=== PATIENT | male | born 1990 | race Caucasian/White ===

== ENCOUNTER 2019-03-19 14:29 | Inpatient (IN) | payer MEDICAID, OTHER ==
[~2019-03-19] VITALS: Ht 172.7 cm; Wt 96.6 kg
[2019-03-19] MEDS ORDERED: PIPER-TAZO 3.375 GM IV (PMX) 100 ML IVPB STA (21:09)
[2019-03-19] MEDS ORDERED: VANCOMYCIN 1 GM (PMX) 250 ML IVPB STA (21:09)
[2019-03-19] MEDS ORDERED: ACETAMINOPHEN 325 MG TAB PO STA (21:09)
[2019-03-19] MEDS ORDERED: ESTR1TAB23 PO (21:22)
[2019-03-19] MEDS ORDERED: FLUO20CA38 PO (21:23)
[2019-03-19] MEDS ORDERED: SPIR25TA PO (21:23)
[2019-03-19] MEDS ORDERED: ARIP5TAB14 PO (21:24)
--- NOTE | 2019-03-19 22:14 | ERD ---
ER Documentation Chief Complaint Chief Complaint wound, possible mrsa on skin HPI This is a 28-year-old transgender male who presents for evaluation of pain and swelling to his legs bilaterally. Patient has a history of polysubstance abuse, and has history of skin popping, as well as IV drug use. He denies fever, he denies chest pain or shortness of breath. His symptoms have been ongoing for the last 3 days, there are no alleviating or aggravating factors. He has not been on antibiotics recently. He denies any history of withdrawal. ROS All systems reviewed and are negative except as per history of present illness. Medications Home Meds Reported Medications Aripiprazole* (Abilify*) Unknown Strength Tab, 1 TAB PO DAILY, #30 TAB 03/19/19 Fluoxetine Hcl* (Prozac*) Unknown Strength Capsule, 1 TAB PO DAILY, CAP 03/19/19 Spironolactone* (Aldactone*) Unknown Strength Tablet, 1 TAB PO DAILY, #30 TAB 03/19/19 Estradiol* (Estrace*) Unknown Strength Tablet, 1 TAB PO DAILY, TAB 03/19/19 Allergies Allergies: Coded Allergies: No Known Allergy (Unverified , 03/19/19) PMhx/Soc Medical and Surgical Hx: pt denies Surgical Hx History of Surgery: No Anesthesia Reaction: No Hx Neurological Disorder: No Hx Respiratory Disorders: No Hx Cardiac Disorders: No Hx Psychiatric Problems: Yes (Homsexuality) Hx Miscellaneous Medical Probl: Yes Hx Alcohol Use: Yes (Social) Hx Substance Use: Yes (Meth,Heroin IV/snort) Hx Tobacco Use: Yes (2-3 sticks/day) Smoking Status: Current every day smoker Physical Exam Vitals Vital Signs Date Temp Pulse Resp B/P (MAP) Pulse Ox O2 O2 Flow FiO2 Time Delivery Rate 03/19/19 98.1 67 18 148/58 99 14:37 (88) Physical Exam Const: Well-developed, well-nourished, appears stated age, Head: Atraumatic Eyes: Normal Conjunctiva ENT: Normal External Ears, Nose and Mouth. Neck: Full range of motion. No meningismus. Resp: Clear to auscultation bilaterally Cardio: Regular rate and rhythm, no murmurs Abd: Soft, non tender, non distended. Normal bowel sounds Skin: There are multiple blisters and signs of skin popping noted over the face, and upper and lower extremities bilaterally. No significant there is warmth erythema and induration to the lower extreme is bilaterally, there is purulent drainage coming from a superficial ulcer over the calf there are no fluctuant masses, or any palpable abscesses. Pulses are intact distally, sensation is intact to light touch Back: No midline or flank tenderness Ext: No cyanosis, or edema Neur: Awake and alert Psych: Normal Mood and Affect Result Diagram: 03/19/19213703/19/192137 Results 24 hrs Laboratory Tests Test 03/19/19 21:38 03/19/19 22:15 White Blood Count 15.8 10^3/ul Red Blood Count 4.49 10^6/ul Hemoglobin 11.3 g/dl Hematocrit 35.6 % Mean Corpuscular Volume 79.3 fl Mean Corpuscular Hemoglobin 25.2 pg Mean Corpuscular Hemoglobin Concent 31.7 g/dl Red Cell Distribution Width 15.5 % Platelet Count 465 10^3/UL Mean Platelet Volume 9.6 fl Immature Granulocytes % 1.100 % Neutrophils % 65.7 % Lymphocytes % 17.5 % Monocytes % 12.3 % Eosinophils % 3.0 % Basophils % 0.4 % Nucleated Red Blood Cells % 0.0 /100WBC Immature Granulocytes # 0.170 10^3/ul Neutrophils # 10.3 10^3/ul Lymphocytes # 2.8 10^3/ul Monocytes # 1.9 10^3/ul Eosinophils # 0.5 10^3/ul Basophils # 0.1 10^3/ul Nucleated Red Blood Cells # 0.0 10^3/ul Prothrombin Time 14.6 Sec Prothrombin Time Ratio 1.1 INR International Normalized Ratio 1.13 Activated Partial Thromboplast Time 26.0 Sec Sodium Level 135 mmol/L Potassium Level 4.2 mmol/L Chloride Level 95 mmol/L Carbon Dioxide Level 29 mmol/L Anion Gap 11 Blood Urea Nitrogen 7 mg/dl Creatinine 0.55 mg/dl Est Glomerular Filtrat Rate mL/min > 60 mL/min Glucose Level 96 mg/dl Calcium Level 8.7 mg/dl Total Bilirubin 0.6 mg/dl Direct Bilirubin 0.00 mg/dl Indirect Bilirubin 0.6 mg/dl Aspartate Amino Transf (AST/SGOT) 53 IU/L Alanine Aminotransferase (ALT/SGPT) 28 IU/L Alkaline Phosphatase 65 IU/L Troponin I < 0.012 ng/ml Total Protein 7.7 g/dl Albumin 3.7 g/dl Globulin 4.00 g/dl Albumin/Globulin Ratio 0.92 POC Venous Lactate 1.1 mmol/L Current Medications Medications Dose Sig/Audrey Start Time Status Last (Trade) Ordered Route PRN Stop Time Admin Dose Reason Admin 650 mg ONCE STAT 03/19/19 DC 03/19/19 Acetaminophen PO 21:09 03/19/19 21:26 (Tylenol 21:13 Tab) Vancomycin 250 ml @ ONCE STAT 03/19/19 03/19/19 HCl 125 mls/hr IVPB 21:09 03/19/19 21:37 23:08 Piperacillin 100 ml @ ONCE STAT 03/19/19 DC 03/19/19 Sod/ 200 mls/hr IVPB 21:09 03/19/19 21:36 Tazobactam 21:38 Sod Sodium 2,340 ml BOLUS OVER 2 03/19/19 DC 03/19/19 Chloride HOURS STAT 22:15 03/19/19 22:26 (NS) IV* 22:17 Procedures/MDM This is a 28-year-old male who presents for evaluation of bilateral lower extremity swelling and edema. His symptoms are most likely related to cellulitis, with his major risk factor being history of skin popping and drug use. Patient had a notable leukocytosis of 15, otherwise he is afebrile, he had no tachycardia, and his blood pressure was in the 140s systolic. He did not have any evidence of severe sepsis, or septic shock. He was given 30 cc/kg's of IV fluids, as well as vancomycin and Zosyn to cover for soft tissue infection. Patient will be admitted to [facility]. Lower suspicion for DVTs, however an ultrasound was ordered, the patient deferred exam at this time. Accepting Care Team: Current data and ongoing care discussed. Primary: Amde Consulting: None Outstanding Data: none EKG: Rate/Rhythm: Normal Sinus Rhythm QRS, ST, T-waves: No changes consistent w/ acute ischemia Impression: No evidence of ischemia or arrhythmia Departure Diagnosis: Primary Impression: Cellulitis Site of cellulitis: unspecified site Qualified Codes: L03.90 - Cellulitis, unspecified Condition: Stable SUHA MONTES DE OCA MD March 19, 2019 22:14
[2019-03-19] MEDS ORDERED: SODIUM CHLORIDE 0.9% 1L BAG IV* STA (22:15)
[2019-03-19 23:43] VITALS: Ht 172.7 cm; Wt 96.6 kg
[2019-03-20] VITALS: BP 105/59; PULSE 100; RESP 18
[2019-03-20] MEDS ORDERED: ONDANSETRON 4 MG INJ IV PRN (01:00)
[2019-03-20] MEDS ORDERED: KETOROLAC 30 MG INJ IV PRN (01:00)
[2019-03-20] MEDS ORDERED: ACETAMINOPHEN 325 MG TAB PO PRN (01:00)
[2019-03-20] MEDS ORDERED: NACL 0.9% 3 ML SYG IV SCH (01:00)
[2019-03-20 02:15] VITALS: BP 112/62; PULSE 96; RESP 20
[2019-03-20] MEDS: VANCOMYCIN HCL 1.25 GM in SOD CHLORIDE 0.9% 250 ML IVPB SCH ×3 (04:46→21:54)
--- NOTE | 2019-03-20 06:43 | HP ---
Date/Time of Note Date/Time of Note DATE: 03/20/19 TIME: 06:39 Assessment/Plan VTE Prophylaxis Risk score (from Ns)>0 risk: 5 SCD applied (from Nsg): Yes Pharmacological prophylaxis: heparin Lines/Catheters IV Catheter Type (from Nrs): Saline Lock Assessment/Plan Hospital Course This is a 28-year-old male with a history of bipolar, ADHD, polysubstance abuse including methamphetamine, cocaine, heroine presents with a bilateral lower extremity swelling as well as several upper extremity and facial wounds, secondary to skin popping. 1. Bilateral lower extremity swelling, bilateral upper extremity wounds: Secondary to skin popping -IV antibiotic -Wound care consult -ID consult 2. Leukocytosis: Secondary to above Result Diagram: 03/20/19 0559 03/19/19 2138 Results 24hrs Laboratory Tests Test 03/19/19 21:38 03/19/19 22:15 03/19/19 23:00 03/20/19 01:09 White Blood Count 15.8 H Red Blood Count 4.49 L Hemoglobin 11.3 L Hematocrit 35.6 L Mean Corpuscular Volume 79.3 L Mean Corpuscular 25.2 L Hemoglobin Mean Corpuscular 31.7 L Hemoglobin Concent Red Cell Distribution 15.5 H Width Platelet Count 465 H Mean Platelet Volume 9.6 Immature Granulocytes % 1.100 H Neutrophils % 65.7 Lymphocytes % 17.5 Monocytes % 12.3 H Eosinophils % 3.0 Basophils % 0.4 Nucleated Red Blood 0.0 Cells % Immature Granulocytes # 0.170 H Neutrophils # 10.3 H Lymphocytes # 2.8 Monocytes # 1.9 H Eosinophils # 0.5 Basophils # 0.1 Nucleated Red Blood 0.0 Cells # Prothrombin Time 14.6 Prothrombin Time Ratio 1.1 INR International 1.13 Normalized Ratio Activated 26.0 Partial Thromboplast Time Sodium Level 135 Potassium Level 4.2 Chloride Level 95 L Carbon Dioxide Level 29 Anion Gap 11 Blood Urea Nitrogen 7 Creatinine 0.55 L Est Glomerular Filtrat > 60 Rate mL/min Glucose Level 96 Calcium Level 8.7 Total Bilirubin 0.6 Direct Bilirubin 0.00 Indirect Bilirubin 0.6 Aspartate Amino 53 H Transf (AST/SGOT) Alanine 28 Aminotransferase (ALT/SG PT) Alkaline Phosphatase 65 Troponin I < 0.012 Total Protein 7.7 Albumin 3.7 Globulin 4.00 H Albumin/Globulin Ratio 0.92 POC Venous Lactate 1.1 Urine Color YELLOW Urine Clarity CLEAR Urine pH 6.0 Urine Specific Albert 1.011 Urine Ketones NEGATIVE Urine Nitrite NEGATIVE Urine Bilirubin NEGATIVE Urine Urobilinogen 2+ H Urine Leukocyte Esterase NEGATIVE Urine Hemoglobin NEGATIVE Urine Glucose NEGATIVE Urine Total Protein NEGATIVE Urine Opiates Screen Positive Urine Barbiturates Negative Urine Amphetamines POSITIVE Screen Urine Benzodiazepines Negative Screen Urine Cocaine Screen Negative Urine Cannabinoids Negative Lactic Acid Level 0.8 Test 03/20/19 05:59 White Blood Count 14.0 H Red Blood Count 4.15 L Hemoglobin 10.4 L Hematocrit 32.7 L Mean Corpuscular Volume 78.8 L Mean Corpuscular 25.1 L Hemoglobin Mean Corpuscular 31.8 L Hemoglobin Concent Red Cell Distribution 15.7 H Width Platelet Count 440 H Mean Platelet Volume 9.4 Immature Granulocytes % 0.900 H Neutrophils % 70.3 Lymphocytes % 14.5 L Monocytes % 11.5 H Eosinophils % 2.5 Basophils % 0.3 Nucleated Red Blood 0.0 Cells % Immature Granulocytes # 0.130 H Neutrophils # 9.8 H Lymphocytes # 2.0 Monocytes # 1.6 H Eosinophils # 0.4 Basophils # 0.0 Nucleated Red Blood 0.0 Cells # HPI/ROS Admit Date/Time Admit Date/Time March 19, 2019 at 21:51 Hx of Present Illness This is a 28-year-old male with a history of bipolar, ADHD, polysubstance abuse including methamphetamine, cocaine and heroine pain the skin popping. Patient presented to the ER complaining of bilateral lower extremity swelling. Patient has been skin popping. Also has several wounds in the bilateral upper extremity and also on the face as well. Patient not answering questions saying that wants to sleep. 1 presents the ER, vitals were stable. WBC 16,000, hemoglobin 11, otherwise basic labs was in acceptable range. PMH/Family/Social Past Medical History Past Surgical Hx: other (see hpi) Family History Significant Family History: no pertinent family hx Social History Alcohol Use: none Smoking Status: Never smoker Drug Use: none Exam Exam Constitutional: other (No acute distress) Head: normocephalic, atraumatic Eyes: EOMI, PERRL Respiratory: other (no wheezing or Rhonchi) Cardiovascular: normal pulse Gastrointestinal: soft, non-tender Extremities: normal pulses Medications Current Medications IV Flush (NS 3 ml) 3 ml PER PROTOCOL IV ; Start 03/20/19 at 01:00 Ondansetron HCl (Zofran Inj) 4 mg Q6H PRN IV NAUSEA/VOMITING; Start 03/20/19 at 01:00 Acetaminophen (Tylenol Tab) 650 mg Q6H PRN PO .PAIN 1-3 OR TEMP; Start 03/20/19 at 01:00 Enoxaparin Sodium (Lovenox) 40 mg DAILY SC ; Start 03/20/19 at 09:00 Ketorolac Tromethamine (Toradol) 30 mg Q6H PRN IV PAIN LEVEL 1-3 Last administered on 03/20/19at 04:46; Admin Dose 30 MG; Start 03/20/19 at 01:00; Stop 03/23/19 at 00:59 Vancomycin HCl (Vanco Iv Per Pharmacy) VANCOMYCIN PER PHARMACY PER PROTOCOL XX ; Start 03/20/19 at 09:00 Cefepime HCl 50 ml @ 100 mls/hr Q12 IVPB ; Start 03/20/19 at 09:00 Vancomycin HCl 1.25 gm/Sodium Chloride 250 ml @ 83.333 mls/ hr Q8H IVPB Last administered on 03/20/19at 04:46; Admin Dose 83.333 MLS/HR; Start 03/20/19 at 06:00 Coded Allergies: No Known Allergy (Unverified , 03/19/19) Social History Smoking Status: Current every day smoker Exam/Review of Systems Vital Signs Vitals Vital Signs Date Temp Pulse Resp B/P (MAP) Pulse Ox O2 O2 Flow FiO2 Time Delivery Rate 03/20/19 98.6 96 20 112/62 99 02:15 (79) 03/20/19 Room Air 00:00 Intake and Output 03/19/19 03/19/19 03/20/19 1515:00 23:00 07:00 IntakeIntake Total 100 ml 3830 ml OutputOutput Total 625 ml BalanceBalance 100 ml 3205 ml LYNN DUNCAN MD March 20, 2019 06:43
[2019-03-20 08:00] VITALS: BP 109/63; PULSE 96; RESP 18
[2019-03-20] MEDS: ENOXAPARIN 40 MG/0.4 ML SYG SC SCH (09:00)
[2019-03-20] MEDS ORDERED: VANCOMYCIN IV PER PHARMACY XX SCH (09:00)
[2019-03-20] MEDS: CEFEPIME 1GM/50 ML (PMX) 50 ML IVPB SCH ×2 (10:13→20:38)
[2019-03-20] MEDS: METHADONE (1 MG/ML 5 ML PO UD SYG) PO SCH (12:30)
[2019-03-20 14:49] VITALS: BP 105/59; PULSE 92; RESP 18
--- NOTE | 2019-03-20 15:41 | PN ---
Date/Time of Note Date/Time of Note DATE: 03/20/19 TIME: 15:33 Assessment/Plan VTE Prophylaxis Risk score (from Ns)>0 risk: 3 SCD applied (from [facility]): No SCD contraindicated: other Pharmacological prophylaxis: LMWH Lines/Catheters IV Catheter Type (from [facility]): Saline Lock Assessment/Plan Assessment/Plan 1. Bilateral lower extremity cellulitis and bilateral upper extremity wounds from skin popping, continue antibiotics with cefepime and vancomycin, wound care 2. polysubstance abuse, advise to quit 3. DVT prophylaxis: lovenox Result Diagram: 03/20/1959 03/20/1959 Results 24hrs Laboratory Tests Test 03/19/19 21:38 03/19/19 22:15 03/19/19 23:00 03/20/19 01:09 White Blood Count 15.8 H Red Blood Count 4.49 L Hemoglobin 11.3 L Hematocrit 35.6 L Mean Corpuscular Volume 79.3 L Mean Corpuscular 25.2 L Hemoglobin Mean Corpuscular 31.7 L Hemoglobin Concent Red Cell Distribution 15.5 H Width Platelet Count 465 H Mean Platelet Volume 9.6 Immature Granulocytes % 1.100 H Neutrophils % 65.7 Lymphocytes % 17.5 Monocytes % 12.3 H Eosinophils % 3.0 Basophils % 0.4 Nucleated Red Blood 0.0 Cells % Immature Granulocytes # 0.170 H Neutrophils # 10.3 H Lymphocytes # 2.8 Monocytes # 1.9 H Eosinophils # 0.5 Basophils # 0.1 Nucleated Red Blood 0.0 Cells # Prothrombin Time 14.6 Prothrombin Time Ratio 1.1 INR International 1.13 Normalized Ratio Activated 26.0 Partial Thromboplast Time Sodium Level 135 Potassium Level 4.2 Chloride Level 95 L Carbon Dioxide Level 29 Anion Gap 11 Blood Urea Nitrogen 7 Creatinine 0.55 L Est Glomerular Filtrat > 60 Rate mL/min Glucose Level 96 Calcium Level 8.7 Total Bilirubin 0.6 Direct Bilirubin 0.00 Indirect Bilirubin 0.6 Aspartate Amino 53 H Transf (AST/SGOT) Alanine 28 Aminotransferase (ALT/SG PT) Alkaline Phosphatase 65 Troponin I < 0.012 Total Protein 7.7 Albumin 3.7 Globulin 4.00 H Albumin/Globulin Ratio 0.92 POC Venous Lactate 1.1 Urine Color YELLOW Urine Clarity CLEAR Urine pH 6.0 Urine Specific [place] 1.011 Urine Ketones NEGATIVE Urine Nitrite NEGATIVE Urine Bilirubin NEGATIVE Urine Urobilinogen 2+ H Urine Leukocyte Esterase NEGATIVE Urine Hemoglobin NEGATIVE Urine Glucose NEGATIVE Urine Total Protein NEGATIVE Urine Opiates Screen Positive Urine Barbiturates Negative Urine Amphetamines POSITIVE Screen Urine Benzodiazepines Negative Screen Urine Cocaine Screen Negative Urine Cannabinoids Negative Lactic Acid Level 0.8 Test 03/20/19 05:59 White Blood Count 14.0 H Red Blood Count 4.15 L Hemoglobin 10.4 L Hematocrit 32.7 L Mean Corpuscular Volume 78.8 L Mean Corpuscular 25.1 L Hemoglobin Mean Corpuscular 31.8 L Hemoglobin Concent Red Cell Distribution 15.7 H Width Platelet Count 440 H Mean Platelet Volume 9.4 Immature Granulocytes % 0.900 H Neutrophils % 70.3 Lymphocytes % 14.5 L Monocytes % 11.5 H Eosinophils % 2.5 Basophils % 0.3 Nucleated Red Blood 0.0 Cells % Immature Granulocytes # 0.130 H Neutrophils # 9.8 H Lymphocytes # 2.0 Monocytes # 1.6 H Eosinophils # 0.4 Basophils # 0.0 Nucleated Red Blood 0.0 Cells # Sodium Level 137 Potassium Level 3.9 Chloride Level 103 Carbon Dioxide Level 27 Anion Gap 7 Blood Urea Nitrogen 5 L Creatinine 0.64 Est Glomerular Filtrat > 60 Rate mL/min Glucose Level 99 Calcium Level 7.7 L Total Bilirubin 0.6 Direct Bilirubin 0.00 Indirect Bilirubin 0.6 Aspartate Amino 37 Transf (AST/SGOT) Alanine 33 Aminotransferase (ALT/SG PT) Alkaline Phosphatase 58 Total Protein 6.6 # Albumin 2.9 L Globulin 3.70 H Albumin/Globulin Ratio 0.78 Subjective 24 Hr Interval Summary Free Text/Dictation pain on legs Exam/Review of Systems Exam Vitals Vital Signs Date Temp Pulse Resp B/P (MAP) Pulse Ox O2 O2 Flow FiO2 Time Delivery Rate 03/20/19 97.9 92 18 105/59 99 Room Air 14:49 (74) Intake and Output 03/19/19 03/19/19 03/20/19 1515:00 23:00 07:00 IntakeIntake Total 100 ml 4580 ml OutputOutput Total 1175 ml BalanceBalance 100 ml 3405 ml Constitutional: alert, oriented, well developed Head: normocephalic, atraumatic Eyes: nl conjunctiva, EOMI, nl lids, PERRL ENMT: nl external ears & nose, nl lips & teeth, nl nasal mucosa & septum Neck: supple, non-tender Respiratory: clear to auscultation, normal air movement Cardiovascular: regular rate and rhythm, nl pulses; No bruits, No diastolic murmur, No edema, No gallop, No irregular rhythm, No jugular venous distention (JVD), No murmurs/extra sounds, No rub, No systolic murmur, No S3, No S4, No other Gastrointestinal: soft, nl liver, spleen, non-tender Musculoskeletal: nl extremities to inspection Extremities: other (multiple skin lesions, no infection on arms, face. 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, nl mental status, nl speech, nl strength Results Results 24hrs Laboratory Tests Test 03/19/19 21:38 03/19/19 22:15 03/19/19 23:00 03/20/19 01:09 White Blood Count 15.8 H Red Blood Count 4.49 L Hemoglobin 11.3 L Hematocrit 35.6 L Mean Corpuscular Volume 79.3 L Mean Corpuscular 25.2 L Hemoglobin Mean Corpuscular 31.7 L Hemoglobin Concent Red Cell Distribution 15.5 H Width Platelet Count 465 H Mean Platelet Volume 9.6 Immature Granulocytes % 1.100 H Neutrophils % 65.7 Lymphocytes % 17.5 Monocytes % 12.3 H Eosinophils % 3.0 Basophils % 0.4 Nucleated Red Blood 0.0 Cells % Immature Granulocytes # 0.170 H Neutrophils # 10.3 H Lymphocytes # 2.8 Monocytes # 1.9 H Eosinophils # 0.5 Basophils # 0.1 Nucleated Red Blood 0.0 Cells # Prothrombin Time 14.6 Prothrombin Time Ratio 1.1 INR International 1.13 Normalized Ratio Activated 26.0 Partial Thromboplast Time Sodium Level 135 Potassium Level 4.2 Chloride Level 95 L Carbon Dioxide Level 29 Anion Gap 11 Blood Urea Nitrogen 7 Creatinine 0.55 L Est Glomerular Filtrat > 60 Rate mL/min Glucose Level 96 Calcium Level 8.7 Total Bilirubin 0.6 Direct Bilirubin 0.00 Indirect Bilirubin 0.6 Aspartate Amino 53 H Transf (AST/SGOT) Alanine 28 Aminotransferase (ALT/SG PT) Alkaline Phosphatase 65 Troponin I < 0.012 Total Protein 7.7 Albumin 3.7 Globulin 4.00 H Albumin/Globulin Ratio 0.92 POC Venous Lactate 1.1 Urine Color YELLOW Urine Clarity CLEAR Urine pH 6.0 Urine Specific [place] 1.011 Urine Ketones NEGATIVE Urine Nitrite NEGATIVE Urine Bilirubin NEGATIVE Urine Urobilinogen 2+ H Urine Leukocyte Esterase NEGATIVE Urine Hemoglobin NEGATIVE Urine Glucose NEGATIVE Urine Total Protein NEGATIVE Urine Opiates Screen Positive Urine Barbiturates Negative Urine Amphetamines POSITIVE Screen Urine Benzodiazepines Negative Screen Urine Cocaine Screen Negative Urine Cannabinoids Negative Lactic Acid Level 0.8 Test 03/20/19 05:59 White Blood Count 14.0 H Red Blood Count 4.15 L Hemoglobin 10.4 L Hematocrit 32.7 L Mean Corpuscular Volume 78.8 L Mean Corpuscular 25.1 L Hemoglobin Mean Corpuscular 31.8 L Hemoglobin Concent Red Cell Distribution 15.7 H Width Platelet Count 440 H Mean Platelet Volume 9.4 Immature Granulocytes % 0.900 H Neutrophils % 70.3 Lymphocytes % 14.5 L Monocytes % 11.5 H Eosinophils % 2.5 Basophils % 0.3 Nucleated Red Blood 0.0 Cells % Immature Granulocytes # 0.130 H Neutrophils # 9.8 H Lymphocytes # 2.0 Monocytes # 1.6 H Eosinophils # 0.4 Basophils # 0.0 Nucleated Red Blood 0.0 Cells # Sodium Level 137 Potassium Level 3.9 Chloride Level 103 Carbon Dioxide Level 27 Anion Gap 7 Blood Urea Nitrogen 5 L Creatinine 0.64 Est Glomerular Filtrat > 60 Rate mL/min Glucose Level 99 Calcium Level 7.7 L Total Bilirubin 0.6 Direct Bilirubin 0.00 Indirect Bilirubin 0.6 Aspartate Amino 37 Transf (AST/SGOT) Alanine 33 Aminotransferase (ALT/SG PT) Alkaline Phosphatase 58 Total Protein 6.6 # Albumin 2.9 L Globulin 3.70 H Albumin/Globulin Ratio 0.78 Medications Medication Current Medications IV Flush (NS 3 ml) 3 ml PER PROTOCOL IV ; Start 03/20/19 at 01:00 Ondansetron HCl (Zofran Inj) 4 mg Q6H PRN IV NAUSEA/VOMITING; Start 03/20/19 at 01:00 Acetaminophen (Tylenol Tab) 650 mg Q6H PRN PO .PAIN 1-3 OR TEMP; Start 03/20/19 at 01:00 Enoxaparin Sodium (Lovenox) 40 mg DAILY SC ; Start 03/20/19 at 09:00 Ketorolac Tromethamine (Toradol) 30 mg Q6H PRN IV PAIN LEVEL 1-3 Last administered on 03/20/19at 04:46; Admin Dose 30 MG; Start 03/20/19 at 01:00; Stop 03/23/19 at 00:59 Vancomycin HCl (Vanco Iv Per Pharmacy) VANCOMYCIN PER PHARMACY PER PROTOCOL XX ; Start 03/20/19 at 09:00 Cefepime HCl 50 ml @ 100 mls/hr Q12 IVPB Last administered on 03/20/19at 10:13; Admin Dose 100 MLS/HR; Start 03/20/19 at 09:00 Vancomycin HCl 1.25 gm/Sodium Chloride 250 ml @ 83.333 mls/ hr Q8H IVPB Last administered on 03/20/19at 13:47; Admin Dose 83.333 MLS/HR; Start 03/20/19 at 06:00 Miscellaneous Information (*Rx Drug Level Order Reminder*) VANCO TR LEVEL PRIOR... 0500 ONCE XX ; Start 03/21/19 at 05:00; Stop 03/21/19 at 05:01 Methadone HCl (Methadone Liq) 20 mg DAILY PO ; Start 03/20/19 at 12:30 TOMMY SAMANO MD March 20, 2019 15:41
[2019-03-20 20:00] VITALS: BP 101/53; PULSE 103; RESP 18
[2019-03-21 02:00] VITALS: BP 122/69; PULSE 95; RESP 18
[2019-03-21] MEDS: VANCOMYCIN HCL 1.25 GM in SOD CHLORIDE 0.9% 250 ML IVPB SCH ×3 (06:22→22:31)
[2019-03-21 08:38] VITALS: BP 111/64; PULSE 98; RESP 18
[2019-03-21] MEDS: ENOXAPARIN 40 MG/0.4 ML SYG SC SCH (08:54)
[2019-03-21] MEDS: CEFEPIME 1GM/50 ML (PMX) 50 ML IVPB SCH ×2 (08:58→21:04)
[2019-03-21] MEDS ORDERED: METHADONE (1 MG/ML 5 ML PO UD SYG) PO SCH (09:05)
[2019-03-21] MEDS: METHADONE (1 MG/ML 5 ML PO UD SYG) PO SCH (09:17)
[2019-03-21 14:31] VITALS: BP 119/68; PULSE 91; RESP 19
--- NOTE | 2019-03-21 15:59 | PN ---
Date/Time of Note Date/Time of Note DATE: 03/21/19 TIME: 15:58 Assessment/Plan VTE Prophylaxis Risk score (from Ns)>0 risk: 1 SCD applied (from [facility]): No SCD contraindicated: other Pharmacological prophylaxis: LMWH Lines/Catheters IV Catheter Type (from [facility]): Saline Lock Assessment/Plan Assessment/Plan 1. Bilateral lower extremity cellulitis and bilateral upper extremity wounds from skin popping, continue antibiotics with cefepime and vancomycin, wound care 2. polysubstance abuse, advise to quit 3. DVT prophylaxis: lovenox 4. flow worker consult for D/C planning, homeless Result Diagram: 03/21/19 0617 03/21/19 0617 Results 24hrs Laboratory Tests Test 03/21/19 06:17 White Blood Count 15.1 H Red Blood Count 4.50 L Hemoglobin 11.3 L Hematocrit 35.7 L Mean Corpuscular Volume 79.3 L Mean Corpuscular Hemoglobin 25.1 L Mean Corpuscular Hemoglobin Concent 31.7 L Red Cell Distribution Width 15.9 H Platelet Count 394 Mean Platelet Volume 10.3 Immature Granulocytes % 1.500 H Neutrophils % 70.1 Lymphocytes % 16.5 Monocytes % 9.7 Eosinophils % 1.7 Basophils % 0.5 Nucleated Red Blood Cells % 0.0 Immature Granulocytes # 0.220 H Neutrophils # 10.6 H Lymphocytes # 2.5 Monocytes # 1.5 H Eosinophils # 0.3 Basophils # 0.1 Nucleated Red Blood Cells # 0.0 Sodium Level 141 Potassium Level 4.3 Chloride Level 106 Carbon Dioxide Level 26 Anion Gap 9 Blood Urea Nitrogen 6 L Creatinine 0.60 L Est Glomerular Filtrat Rate mL/min > 60 Glucose Level 107 Calcium Level 8.7 Phosphorus Level 3.7 Magnesium Level 2.2 Vancomycin Level Trough 13.6 Subjective 24 Hr Interval Summary Free Text/Dictation pain on lower extremities Exam/Review of Systems Exam Vitals Vital Signs Date Temp Pulse Resp B/P (MAP) Pulse Ox O2 O2 Flow FiO2 Time Delivery Rate 03/21/19 97.8 91 19 119/68 100 14:31 (85) 03/21/19 Room Air 02:00 Intake and Output 03/20/19 03/20/19 03/21/19 1515:00 23:00 07:00 IntakeIntake Total 1350 ml 900 ml 2350 ml OutputOutput Total 1100 ml 300 ml 2400 ml BalanceBalance 250 ml 600 ml -50 ml Constitutional: alert, oriented, well developed Head: normocephalic, atraumatic Eyes: nl conjunctiva, EOMI, nl lids, PERRL ENMT: nl external ears & nose, nl lips & teeth, nl nasal mucosa & septum Neck: supple Respiratory: clear to auscultation, normal air movement; No congested cough, No crackles/rales, No diminished breath sounds, No intercostal retraction, No labored breathing, No respirations, No tactile fremitus, No wheezing, No other Cardiovascular: regular rate and rhythm, nl pulses; No bruits, No diastolic murmur, No edema, No gallop, No irregular rhythm, No jugular venous distention (JVD), No murmurs/extra sounds, No rub, No systolic murmur, No S3, No S4, No other Gastrointestinal: soft, nl liver, spleen, non-tender Extremities: other (redness, edema and warmth on both lower extremities) Neurological: CREDIT OPERATIONS PROCESSOR II-XII intact, nl mental status, nl speech, nl strength Results Results 24hrs Laboratory Tests Test 03/21/19 06:17 White Blood Count 15.1 H Red Blood Count 4.50 L Hemoglobin 11.3 L Hematocrit 35.7 L Mean Corpuscular Volume 79.3 L Mean Corpuscular Hemoglobin 25.1 L Mean Corpuscular Hemoglobin Concent 31.7 L Red Cell Distribution Width 15.9 H Platelet Count 394 Mean Platelet Volume 10.3 Immature Granulocytes % 1.500 H Neutrophils % 70.1 Lymphocytes % 16.5 Monocytes % 9.7 Eosinophils % 1.7 Basophils % 0.5 Nucleated Red Blood Cells % 0.0 Immature Granulocytes # 0.220 H Neutrophils # 10.6 H Lymphocytes # 2.5 Monocytes # 1.5 H Eosinophils # 0.3 Basophils # 0.1 Nucleated Red Blood Cells # 0.0 Sodium Level 141 Potassium Level 4.3 Chloride Level 106 Carbon Dioxide Level 26 Anion Gap 9 Blood Urea Nitrogen 6 L Creatinine 0.60 L Est Glomerular Filtrat Rate mL/min > 60 Glucose Level 107 Calcium Level 8.7 Phosphorus Level 3.7 Magnesium Level 2.2 Vancomycin Level Trough 13.6 Medications Medication Current Medications IV Flush (NS 3 ml) 3 ml PER PROTOCOL IV ; Start 03/20/19 at 01:00 Ondansetron HCl (Zofran Inj) 4 mg Q6H PRN IV NAUSEA/VOMITING; Start 03/20/19 at 01:00 Acetaminophen (Tylenol Tab) 650 mg Q6H PRN PO .PAIN 1-3 OR TEMP; Start 03/20/19 at 01:00 Enoxaparin Sodium (Lovenox) 40 mg DAILY SC Last administered on 03/21/19 08:54; Admin Dose 40 MG; Start 03/20/19 at 09:00 Ketorolac Tromethamine (Toradol) 30 mg Q6H PRN IV PAIN LEVEL 1-3 Last administe red on 03/20/19at 04:46; Admin Dose 30 MG; Start 03/20/19 at 01:00; Stop 03/23/19 at 00:59 Vancomycin HCl (Vanco Iv Per Pharmacy) VANCOMYCIN PER PHARMACY PER PROTOCOL XX ; Start 03/20/19 at 09:00 Cefepime HCl 50 ml @ 100 mls/hr Q12 IVPB Last administered on 03/21/19at 08:58; Admin Dose 100 MLS/HR; Start 03/20/19 at 09:00 Vancomycin HCl 1.25 gm/Sodium Chloride 250 ml @ 83.333 mls/ hr Q8H IVPB Last administered on 03/21/19at 15:14; Admin Dose 83.333 MLS/HR; Start 03/20/19 at 06:00 Methadone HCl (Methadone Liq) 20 mg DAILY PO Last administered on 03/21/19 09:17; Admin Dose 20 MG; Start 03/20/19 at 12:30 TOMMY SAMANO MD March 21, 2019 15:59
[2019-03-21 20:00] VITALS: BP_SYST 112; BP_SYST 119; BP_DIAS 69; PULSE 89; PULSE 97; RESP 18
[2019-03-22 02:53] VITALS: BP 111/68; PULSE 77; RESP 20
[2019-03-22] MEDS: VANCOMYCIN HCL 1.25 GM in SOD CHLORIDE 0.9% 250 ML IVPB SCH ×3 (06:11→21:22)
[2019-03-22 07:49] VITALS: BP 112/67; PULSE 88; RESP 18
[2019-03-22] MEDS: METHADONE (1 MG/ML 5 ML PO UD SYG) PO SCH (09:50)
[2019-03-22] MEDS: ENOXAPARIN 40 MG/0.4 ML SYG SC SCH (09:51)
--- NOTE | 2019-03-22 13:01 | PN ---
Date/Time of Note Date/Time of Note DATE: 03/22/19 TIME: 12:58 Assessment/Plan VTE Prophylaxis Risk score (from Nsg)>0 risk: 0 SCD applied (from Nsg): No SCD contraindicated: low risk/ambulating Pharmacological prophylaxis: LMWH Lines/Catheters IV Catheter Type (from Nrsg): Saline Lock Assessment/Plan Hospital Course Assessment and plan 1. Bilateral lower extremity cellulitis due to skin popping, mild stable, discharged on Bactrim 2. Substance abuse: Heroin, meth, counseling. Patient refused inpatient [facility]. Will go there as an outpatient. 3. Bipolar disorder 4. Tobacco abuse 5. Anemia rule out due to chronic disease Subjective: Shahram likes to be called, Caitie, is homeless and new to the area. Moved here from [place]. Apparently skin popping. Presently awake alert no distress and wants to go home soon. Pulled out IV Objective: Vital signs stable Physical exam No pallor Regular no m/r/g Clear Benign Mild edema left> right. no Homans. Multiple areas of excoriation scabs Result Diagram: 03/21/1961603/21/19616 Exam/Review of Systems Exam Vitals Vital Signs Date Temp Pulse Resp B/P (MAP) Pulse Ox O2 O2 Flow FiO2 Time Delivery Rate 03/22/19 97.8 88 18 112/67 98 07:49 (82) 03/21/19 Room Air 20:00 Intake and Output 03/21/19 03/21/19 03/22/19 1515:00 23:00 07:00 IntakeIntake Total 1160 ml 550 ml 250.000 ml OutputOutput Total 1100 ml 450 ml 800 ml BalanceBalance 60 ml 100 ml -550.000 ml Medications Medication Current Medications IV Flush (NS 3 ml) 3 ml PER PROTOCOL IV ; Start 03/20/19 at 01:00 Ondansetron HCl (Zofran Inj) 4 mg Q6H PRN IV NAUSEA/VOMITING; Start 03/20/19 at 01:00 Acetaminophen (Tylenol Tab) 650 mg Q6H PRN PO .PAIN 1-3 OR TEMP; Start 03/20/19 at 01:00 Enoxaparin Sodium (Lovenox) 40 mg DAILY SC Last administered on 03/22/19at 09:51; Admin Dose 40 MG; Start 03/20/19 at 09:00 Ketorolac Tromethamine (Toradol) 30 mg Q6H PRN IV PAIN LEVEL 1-3 Last administered on 03/20/19at 04:46; Admin Dose 30 MG; Start 03/20/19 at 01:00; Stop 03/23/19 at 00:59 Vancomycin HCl (Vanco Iv Per Pharmacy) VANCOMYCIN PER PHARMACY PER PROTOCOL XX ; Start 03/20/19 at 09:00 Cefepime HCl 50 ml @ 100 mls/hr Q12 IVPB Last administered on 03/21/19at 21:04; Admin Dose 100 MLS/HR; Start 03/20/19 at 09:00 Vancomycin HCl 1.25 gm/Sodium Chloride 250 ml @ 83.333 mls/ hr Q8H IVPB Last administered on 03/22/19at 06:11; Admin Dose 83.333 MLS/HR; Start 03/20/19 at 06:00 Methadone HCl (Methadone Liq) 20 mg DAILY PO Last administered on 03/22/19at 09:50; Admin Dose 20 MG; Start 03/20/19 at 12:30 XOCHITL DANIELSON MD March 22, 2019 13:01
[2019-03-22 14:45] VITALS: BP 93/50; PULSE 60; RESP 18
--- NOTE | 2019-03-22 15:46 | PDOCDIS ---
Discharge Instructions CONDITION [id number] Patient Condition: [id number] Stable HOME CARE INSTRUCTIONS: Kidgo3Mg Diet Instructions: Popmm3p Regular ACTIVITY: [id number] Activity Restrictions: [id number] Slowly Increase Activity Do not Drive FOLLOW UP/APPOINTMENTS Follow-up Plan appt primary 1XOCHITL Ramesh MD March 22, 2019 15:46
[2019-03-22] MEDS ORDERED: ACET325T33 PO (15:47)
[2019-03-22] MEDS ORDERED: SULF-182 PO (15:47)
--- NOTE | 2019-03-22 17:06 | DS ---
Date/Time of Note Date/Time of Note DATE: 03/22/19 TIME: 17:05 Discharge Summary Admission/Discharge Info Admit Date/Time March 19, 2019 at 21:51 Discharge Date/Time Patient Condition: Stable Hx of Present Illness cellullitis Hospital Course Assessment and plan 1. Bilateral lower extremity cellulitis due to skin popping, mild stable, discharged on Bactrim 2. Substance abuse: Heroin, meth, counseling. Patient refused inpatient [facility]. Will go there as an outpatient. 3. Bipolar disorder 4. Tobacco abuse 5. Anemia rule out due to chronic disease 6. Nonadherence; refused venous bilat usg. S: Shahram who likes to be called, Caitie, is homeless and new to the area. Moved here from [place]. Apparently skin popping. Presently awake alert no distress and wants to go home soon. Pulled out IV. wants to go 'home'. O: Vital signs stable PE No pallor Regular no m/r/g Clear Benign Mild edema left> right. no Homans. Multiple areas of excoriation scabs Home Meds Active Scripts Acetaminophen* (Tylenol*) 325 Mg Tablet, 650 MG PO Q6H PRN for .PAIN 1-3 OR TEMP for 1 Day, TAB Prov:XOCHITL DANIELSON MD 03/22/19 Sulfamethoxazole/Trimethoprim (Sulfamethoxazole-Tmp Ds Tablet) 1 Each Tablet, 1 TAB PO BID for 10 Days, #20 TAB Prov:XOCHITL DANIELSON MD 03/22/19 Reported Medications Aripiprazole* (Abilify*) Unknown Strength Tab, 1 TAB PO DAILY, #30 TAB 03/19/19 Fluoxetine Hcl* (Prozac*) Unknown Strength Capsule, 1 TAB PO DAILY, CAP 03/19/19 Spironolactone* (Aldactone*) Unknown Strength Tablet, 1 TAB PO DAILY, #30 TAB 03/19/19 Estradiol* (Estrace*) Unknown Strength Tablet, 1 TAB PO DAILY, TAB 03/19/19 Follow-up Plan appt primary 1wk Primary Care Provider Care Physician No Primary Time spent on discharge: > 30 minutes XOCHITL DANIELSON MD March 22, 2019 17:06
[2019-03-22] MEDS ORDERED: LACTOBACILLUS RHAMNOSUS CAP ONE (19:52)
[2019-03-22 20:00] VITALS: BP 104/58; PULSE 87; RESP 18
[2019-03-22] MEDS: LACTOBACILLUS RHAMNOSUS CAP PO SCH (21:22)
[2019-03-23 02:00] VITALS: BP 119/60; PULSE 76; RESP 17
[2019-03-23] MEDS: VANCOMYCIN HCL 1.25 GM in SOD CHLORIDE 0.9% 250 ML IVPB SCH (05:38)
[2019-03-23 08:00] VITALS: BP 113/63; PULSE 82; RESP 18
[2019-03-23] MEDS: ENOXAPARIN 40 MG/0.4 ML SYG SC SCH ×2 (09:00→10:26)
--- NOTE | 2019-03-23 10:23 | DS ---
Date/Time of Note Date/Time of Note DATE: 03/23/19 TIME: 10:22 Discharge Summary Admission/Discharge Info Admit Date/Time March 19, 2019 at 21:51 Discharge Date/Time Patient Condition: Stable Hx of Present Illness cellullitis Hospital Course Hospital course/hospitalist coverage 1. Bilateral lower extremity cellulitis due to skin popping, mild stable, discharge on Bactrim 2. Substance abuse: Heroin, meth, counseling. Patient refused inpatient [facility]. Will go there as an outpatient. 3. Bipolar disorder 4. Tobacco abuse 5. Anemia rule out due to chronic disease 6. Nonadherence; refused venous bilat usg. S: 03/22 Shahram who likes to be called, Caitie, is homeless and new to the area. Moved here from [place]. Apparently skin popping. Presently awake alert no distress and wants to go home soon. Pulled out IV. wants to go 'home'. 03/23: No events O: Vital signs stable PE No pallor Regular no m/r/g Clear Benign Mild edema left> right. no Homans. Multiple areas of excoriation scabs Home Meds Active Scripts Acetaminophen* (Tylenol*) 325 Mg Tablet, 650 MG PO Q6H PRN for .PAIN 1-3 OR TEMP for 1 Day, TAB Prov:XOCHITL DANIELSON MD 03/22/19 Sulfamethoxazole/Trimethoprim (Sulfamethoxazole-Tmp Ds Tablet) 1 Each Tablet, 1 TAB PO BID for 10 Days, #20 TAB Prov:XOCHITL DANIELSON MD 03/22/19 Reported Medications Aripiprazole* (Abilify*) Unknown Strength Tab, 1 TAB PO DAILY, #30 TAB 03/19/19 Fluoxetine Hcl* (Prozac*) Unknown Strength Capsule, 1 TAB PO DAILY, CAP 03/19/19 Spironolactone* (Aldactone*) Unknown Strength Tablet, 1 TAB PO DAILY, #30 TAB 03/19/19 Estradiol* (Estrace*) Unknown Strength Tablet, 1 TAB PO DAILY, TAB 03/19/19 Follow-up Plan appt primary 1wk Primary Care Provider Care Physician No Primary Time spent on discharge: > 30 minutes XOCHITL DANIELSON MD March 23, 2019 10:23
[2019-03-23] MEDS: LACTOBACILLUS RHAMNOSUS CAP PO SCH ×2 (10:25→21:00)
[2019-03-23] MEDS: TRIMETHOPRIM/SULFAMETHOX (DS) TAB PO SCH ×2 (10:25→21:00)
[2019-03-23] MEDS: METHADONE (1 MG/ML 5 ML PO UD SYG) PO SCH (12:20)
[2019-03-23 14:00] VITALS: BP 101/57; RESP 18
[2019-03-24 00:47] VITALS: BP 104/56; PULSE 67; RESP 18
== END 2019-03-24 08:13 | disposition home or self-care (01) | DRG 603 ==
LOC: EDBD 14:29 → E/R 14:29 → PP2 21:51
PROVIDERS: ADMIT Internal Medicine; ATTEND Internal Medicine
DX: L03.116 Cellulitis of left lower limb (principal); D63.8 Anemia in other chronic diseases classified elsewhere; L03.115 Cellulitis of right lower limb; F15.10 Other stimulant abuse, uncomplicated; F11.10 Opioid abuse, uncomplicated; F31.9 Bipolar disorder, unspecified; F90.9 Attention-deficit hyperactivity disorder, unspecified type; F14.10 Cocaine abuse, uncomplicated; F64.0 Transsexualism; F17.210 Nicotine dependence, cigarettes, uncomplicated; Z91.19 Patient's noncompliance with other medical treatment and regimen; Z59.0 Homelessness
CPT/HCPCS: 36415; 80048; 80053; 80202; 80307; 81003; 83605; 83735; 84100; 84484; 85025; 85610; 85730; 87086; 93005; 96374; 96375; J0692; J1650; J1885; J2543; J3370; J7030; J7050